=== PATIENT | female | born 1950 | race Hispanic/Latino ===

== ENCOUNTER 2017-03-05 16:20 | Observation (INO) | payer BC ==
--- NOTE | 2017-03-05 16:57 | ED PDOC ---
Arrival/HPI - General Time Seen by Provider: 03/05/17 16:42 Historian: Patient - History of Present Illness Narrative History of Present Illness (Text): 03/05/17 16:44 66 y/o female, pmh including htn/hyperlipidemia/a.fibb, allergic to sudafed/ sulfa medication, biba c/o chest pain on and off this week. Pt. was the [facility] this afternoon, noted to have elevated blood pressure 170s/100s, 200s/100s on the ambulance as per patient, noted to have higher BP 180s/110s, has chest pain when she gets agitated but relief when staying calm, no night sweat, no palpitation, no headache, no numbness or tingling, no other medical or psychological complaints. Past Medical History - Provider Review Nursing Documentation Reviewed: Yes - Infectious Disease Hx of Infectious Diseases: None - Tetanus Immunization Tetanus Immunization: Unknown - Cardiac Hx Cardiac Disorders: Yes Hx Angina: No Hx Cardiac Arrhythmia: Yes (A Fib) Hx Circulatory Problems: No Hx Congestive Heart Failure: No Hx Heart Murmur: No Hx Heart Transplant: No Hx Hypertension: Yes Hx Internal Defibrillator: No Hx Mitral Valve Prolapse: No Hx Pacemaker: No Hx Peripheral Edema: No Hx Peripheral Vascular Disease: No - Pulmonary Hx Respiratory Disorders: No Hx Asthma: No Hx Bronchitis: No Hx Chronic Obstructive Pulmonary Disease (COPD): No Hx Emphysema: No Hx Pneumonia: No Hx Respiratory Aspiration: No Hx Respiratory Tract Infection: No Hx Sleep Apnea: No Hx Tuberculosis: No - Neurological Hx Neurological Disorder: Yes Hx Alzheimer's Disease: No HX Cerebrovascular Accident: No Hx Dementia: No Hx Dizziness: Yes (Vertigo and headaches) Hx Meningitis: No Hx Migraine: No Hx Parkinson's Disease: No Hx Seizures: No Hx Transient Ischemic Attacks (TIA): No - HEENT Hx HEENT Disorder: Yes Hx Blind: No Hx Cataracts: Yes Hx Deafness: No Hx Difficulty Chewing: No Hx Epistaxis: No Hx Glaucoma: No Hx Macular Degeneration: No - Renal Hx Renal Disorder: No Hx Dialysis: No Hx Kidney Stones: No Hx Neurogenic Bladder: No Hx Pyelonephritis: No Hx Renal Cancer: No Hx Renal Failure: No - Endocrine/Metabolic Hx Endocrine Disorders: No Hx Adrenal Cancer: No Hx Diabetes Insipidus: No Hx Diabetes Mellitus Type 1: No Hx Diabetes Mellitus Type 2: No Hx Hyperthyroidism: No Hx Hypothyroidism: No Hx Systemic Lupus Erythematosus: No - Hematological/Oncological Hx Blood Disorders: No Hx AIDS: No Hx Anemia: No Hx Cancer: No Hx Chemotherapy: No Hx Cirrhosis: No Hx Hemophilia: No Hx Hepatitis A: No Hx Hepatitis B: No Hx Hepatitis C: No Hx Metastasis: No Hx Shingles: No Hx Sickle Cell Disease: No Hx Unexplained Bleeding: No - Integumentary Hx Dermatological Disorder: No Hx Basal Cell Carcinoma: No Hx Eczema: No Hx Melanoma: No Hx Psoriasis: No Hx Squamous Cell Carcinoma: No - Musculoskeletal/Rheumatological Hx Musculoskeletal Disorders: Yes Hx Arthritis: No Hx Back Pain: No Hx Degenerative Joint Disease: No Hx Falls: Yes Hx Fractures: No Hx Gout: No Hx Herniated Disk: No Hx Myasthenia Gravis: No Hx Osteoarthritis: No Hx Osteomyelitis: No Hx Osteoporosis: Yes Hx Rhabdomyolysis: No Hx Spinal Stenosis: No Hx Unsteady Gait: No - Gastrointestinal Hx Gastrointestinal Disorders: Yes (colitis) Hx Colostomy: No Hx Crohn's Disease: No Hx Diverticulitis: No Hx Gall Bladder Disease: No Hx Gastroesophageal Reflux: Yes Hx Gastrointestinal Ulcer: No Hx Ileostomy: No Hx Liver Failure: No Hx Pancreatitis: No HX Swallowing Problems: No - Genitourinary/Gynecological Hx Genitourinary Disorders: No Hx Hematuria: No Hx Incontinence: No Hx Prostate Problems: No Hx Sexually Transmitted Diseases: No Hx Urinary Tract Infection: No - Psychiatric Hx Psychophysiologic Disorder: Yes Hx Anxiety: Yes Hx Bipolar Disorder: No Hx Depression: No Hx Emotional Abuse: No Hx Hallucinations: No Hx Panic Disorder: No Hx Paranoia: No Hx Post Traumatic Stress Disorder: No Hx Psychosis: No Hx Physical Abuse: No Hx Schizophrenia: No Hx Sexual Abuse: No Hx Substance Use: No - Surgical History Hx Amputation: No Hx Appendectomy: Yes Hx Cardiac Catheterization: No Hx Cholecystectomy: No Hx Coronary Stent: No Hx Gastric Bypass Surgery: No Hx Hysterectomy: No Hx Inguinal Hernia Repair: No Hx Joint Replacement: No Hx Kidney Transplant: No Hx Liver Transplant: No Hx Mastectomy: No Hx Musculoskeletal Surgery: No Hx Open Heart Surgery: No Hx Orthopedic Surgery: No Hx Splenectomy: No Hx Valve Replacement: No - Anesthesia Hx Anesthesia: Yes Hx Anesthesia Reactions: No Hx Malignant Hyperthermia: No - Suicidal Assessment Feels Threatened In Home Enviroment: No Family/Social History - Physician Review Nursing Documentation Reviewed: Yes Family/Social History: Unknown Family HX Smoking Status: Former Smoker Hx Alcohol Use: No Hx Substance Use: No Hx Substance Use Treatment: No Allergies/Home Meds Allergies/Adverse Reactions: Allergies pseudoephedrine Allergy (Severe, Verified 11/11/15 18:08) RASH shellfish derived Allergy (Severe, Verified 11/11/15 18:08) Hives Sulfa (Sulfonamide Antibiotics) Allergy (Unknown, Verified 11/11/15 18:08) unknown Home Medications: Home Meds Medication Instructions Recorded Confirmed Simvastatin [Zocor] 20 mg PO DAILY 07/10/12 11/12/15 ALPRAZolam [Xanax] 0.25 mg PO BID PRN 11/20/14 11/12/15 Rabeprazole Sodium 20 mg PO DAILY 11/20/14 11/12/15 Amiodarone [Cordarone] 100 mg PO DAILY 11/21/14 11/12/15 Review of Systems - Review of Systems Constitutional: absent: Fatigue, Fevers Eyes: absent: Vision Changes ENT: absent: Hearing Changes Respiratory: absent: SOB, Cough Cardiovascular: Chest Pain Gastrointestinal: absent: Abdominal Pain, Nausea, Vomiting Physical Exam Vital Signs Reviewed: Yes Vital Signs Temp Pulse Resp BP Pulse Ox 03/05/17 19:59 65 14 168/100 H 96 03/05/17 18:54 56 L 17 139/90 96 03/05/17 17:48 62 184/96 H 03/05/17 16:35 98.3 F 71 18 186/113 H 97 Temperature: Afebrile Blood Pressure: Hypertensive Pulse: Regular Respiratory Rate: Normal Appearance: Positive for: Well-Appearing, Non-Toxic, Comfortable Pain Distress: None Mental Status: Positive for: Alert and Oriented X 3 - Systems Exam Head: Present: Atraumatic, Normocephalic Pupils: Present: PERRL Extroacular Muscles: Present: EOMI Conjunctiva: Present: Normal Mouth: Present: Moist Mucous Membranes Neck: Present: Normal Range of Motion Respiratory/Chest: Present: Clear to Auscultation, Good Air Exchange. No: Respiratory Distress, Accessory Muscle Use Cardiovascular: Present: Regular Rate and Rhythm, Normal S1, S2, Other (no pedal edema). No: Murmurs Abdomen: Present: Normal Bowel Sounds. No: Tenderness, Distention, Peritoneal Signs, Rebound, Guarding Back: Present: Normal Inspection Upper Extremity: Present: Normal Inspection. No: Cyanosis, Edema Lower Extremity: Present: Normal Inspection. No: Edema Neurological: Present: GCS=15, CN II-XII Intact, Speech Normal Skin: Present: Warm, Dry, Normal Color. No: Rashes Psychiatric: Present: Alert, Oriented x 3, Normal Insight, Normal Concentration Medical Decision Making ED Course and Treatment: 03/05/17 17:02 -labs/ua/troponin -ekg -chest x-ray -clonidine 0.1mg/aspirin po -playground monitor -observe and reassess 03/05/17 19:04 -Chest xray show no active disease -EKG: NSR @ 71 BPM, no ST elevation or depression, T wave inversion noted on the lead III. -Labs are non-significant -1st set of troponin is negative, pt. feels well now. -pt. will need to be admitted for observation for 24 hours for repeat cardiac enzymes. -Pt. agreed to be admitted -Dr. Delaney covers for the Dr. Alexis. 03/05/17 19:08 -I spoke to Dr. Delaney about the case/labs/radiology results/ekg, he request Dr. Ramon for routine consult and agreed on the observation plan. -I spoke to DR. Cervantes, he agreed on the treatment and observation plan, he will put in the admission order. - Lab Interpretations Lab Results: 03/05/17 17:30 03/05/17 17:30 Lab Results 03/05/17 17:30: Sodium 139, Potassium 4.3, Chloride 102, Carbon Dioxide 29, Anion Gap 12, BUN 12, Creatinine 0.7, Est GFR ( Amer) > 60, Est GFR (Non- Af Amer) > 60, Random Glucose 87, Calcium 9.5, Total Bilirubin 0.6, AST 36, ALT 29, Alkaline Phosphatase 78, Lactate Dehydrogenase 794 H, Total Creatine Kinase 235 H, CK-MB (CK-2) 2.7, CK-MB (CK-2) % Cancelled, Troponin I < 0.01, Total Protein 7.9, Albumin 4.5, Globulin 3.3, Albumin/Globulin Ratio 1.4 03/05/17 17:30: WBC 6.9, RBC 4.70, Hgb 13.4, Hct 39.7, MCV 84.5, MCH 28.5, MCHC 33.8, RDW 13.6, Plt Count 288, MPV 9.6, Gran % 60.4, Lymph % (Auto) 22.0, [facility] % (Auto) 7.0 H, Eos % (Auto) 9.9 H, Baso % (Auto) 0.7, Gran # 4.17, Lymph # 1.5 , [facility] # 0.5, Eos # 0.7, Baso # 0.05 I have reviewed the lab results: Yes Interpretation: No clinic. lab abnormalty - RAD Interpretation Radiology Orders: 03/05/17 17:00 CHEST PORTABLE [RAD] Stat no active disease [employer] Farmworker: Radiologist - EKG Interpretation EKG Interpretation (Text): 03/05/17 17:04 -EKG: NSR @ 71 BPM, no ST elevation or depression, T wave inversion noted on the lead III. Interpreted by ED Physician: Yes Type: 12 lead EKG Comparison: Com.w/previous EKG - Medication Orders Current Medication Orders: Discontinued Medications Aspirin (Aspirin) 325 mg PO STAT STA Stop: 03/05/17 17:01 Last Admin: 03/05/17 17:49 Dose: 325 mg Clonidine HCl (Catapres) 0.1 mg PO STAT STA Stop: 03/05/17 17:02 Last Admin: 03/05/17 17:48 Dose: 0.1 mg Nitroglycerin (Nitrostat Sl Tab) 0.3 mg SL STAT STA Stop: 03/05/17 17:01 - PA / CLERK CHECKER / Resident Statement MD/DO has reviewed & agrees with the documentation as recorded. Disposition/Present on Arrival - Present on Arrival Any Indicators Present on Arrival: No History of DVT/PE: No History of Uncontrolled Diabetes: No Urinary Catheter: No History of Decub. Ulcer: No History Surgical Site Infection Following: None - Disposition Have Diagnosis and Disposition been Completed?: Yes Diagnosis: Chest pain, Hypertension Disposition: HOSPITALIZED Disposition Time: 19:06 Patient Plan: Admission, Observation Patient Problems: Current Active Problems Problem Status Onset Chest pain Acute Hypertension Chronic Condition: STABLE
--- NOTE | 2017-03-05 17:59 | RAD ---
HISTORY: Medical clearance. Portable study 17:24. COMPARISON: No prior. FINDINGS: LUNGS: No active pulmonary disease. PLEURA: No significant pleural effusion identified, no pneumothorax apparent. CARDIOVASCULAR: No radiographic findings to suggest acute or significant cardiovascular disease. OSSEOUS STRUCTURES: No significant abnormalities. VISUALIZED UPPER ABDOMEN: Normal. OTHER FINDINGS: None. IMPRESSION: No active disease.
[2017-03-05 18:10] LABS: ADD MANUAL DIFF? NO
[2017-03-05 18:20] LABS: BASO # 0.05 K/mm3 (0.0-2.0); BASO % 0.7 % (0.0-3.0); EOS # 0.7 (0.0-0.7); EOS % 9.9 % (1.5-5.0); GRAN # 4.17 (1.4-6.5); GRAN % 60.4 % (50.0-68.0); HEMATOCRIT 39.7 % (36.0-48.0); LYMPH # 1.5 (1.2-3.4); MEAN CELL VOLUME 84.5 fL (80.0-105.0); MEAN CORPUSCULAR HEMOGLOBIN 28.5 pg (25.0-35.0); MEAN CORPUSCULAR HGB CONC 33.8 g/dl (31.0-37.0); MEAN PLATELET VOLUME 9.6 fl (7.0-11.0); MONO # 0.5 (0.1-0.6); PLATELET COUNT 288 10^3/uL (120.0-450.0); RED CELL DISTRIBUTION WIDTH 13.6 % (11.5-14.5); WHITE BLOOD COUNT 6.9 10^3/ul (4.5-11.0)
[2017-03-05 18:28] LABS: ALB/GLOB RATIO 1.4 (1.1-1.8); ALKALINE PHOSPHATASE 78 U/L (38-133); ALT/SGPT 29 U/L (7-56); AST/SGOT 36 U/L (15-39); BILIRUBIN,TOTAL 0.6 mg/dL (0.2-1.3); BLOOD UREA NITROGEN 12 mg/dL (7-21); CALCIUM 9.5 mg/dL (8.4-10.5); CARBON DIOXIDE 29 mmol/L (21-33); CHLORIDE 102 mmol/L (98-107); GFR AFRICAN-AMERICAN > 60; GLUCOSE,RANDOM 87 mg/dL (70-110); POTASSIUM 4.3 mmol/L (3.6-5.0); SODIUM 139 mmol/L (132-148); TOTAL PROTEIN 7.9 g/dL (5.8-8.3)
[2017-03-05 18:44] LABS: TROPONIN I < 0.01 ng/mL
[2017-03-05 21:10] LABS: PH,URINE 7.5 (4.7-8.0); URINE BILIRUBIN NEGATIVE (NEGATIVE); URINE BLOOD SMALL (NEGATIVE); URINE GLUCOSE (UA) NEGATIVE (NEGATIVE); URINE KETONE NEGATIVE (NEGATIVE); URINE LEUKOCYTE ESTERASE NEGATIVE Leu/uL (NEGATIVE); URINE PROTEIN NEGATIVE mg/dL (<30 mg/dL); URINE UROBILINOGEN 0.2 E.U./dL (<1 E.U./dL)
[2017-03-05 21:14] LABS: URINE APPEARANCE CLEAR (CLEAR); URINE COLOR LIGHT YELLOW (YELLOW)
[2017-03-05 21:26] LABS: URINE RBC 0 - 2 /hpf (0-2); URINE WBC NEGATIVE /hpf (0-6)
[2017-03-05 21:27] LABS: URINE BACTERIA NEG (NEG); URINE EPITHELIAL CELLS 0 - 2 /hpf (0-5)
[2017-03-05 23:10] VITALS: BMI 23.8
[2017-03-06] MEDS: Metoprolol Succinate 25 mg XL Tab PO SCH ×2 (11:55→19:40)
--- NOTE | 2017-03-06 13:10 | HP ---
DATE OF EVALUATION: 03/06/2017. HISTORY OF PRESENT ILLNESS: The patient is a 66-year-old female who presented to the ED with chest p ain, left-sided. She was not feeling well. Her blood pressures were uncontrolled in the ER with 200 systolic. She has a history of atrial fibrillation on Eliquis. Heart rate was controlled on curren t medication. She takes metoprolol 25 mg twice a day. No chest pain now. She was given aspirin. B lood pressure is still elevated at 120/110. She also has history of osteoarthritis. No joint pain n ow. Blood pressure had been controlled in the past. PAST MEDICAL HISTORY: Atrial fibrillation, hypertension, osteoarthritis, history of dizziness, verti go. PAST SURGICAL HISTORY: None. PERSONAL HISTORY: Former smoker. No history of alcohol abuse. FAMILY HISTORY: Noncontributory. No positive history in mother or father. SOCIAL HISTORY: Lives at home. ALLERGIES: PSEUDOEPHEDRINE, SHELLFISH, SULFA ALLERGIES. HOME MEDICATIONS: Xanax 0.25 mg p.o. b.i.d. p.r.n., Zocor 20 mg daily, amiodarone 100 mg p.o. b.i.d. , metoprolol 25 mg p.o. b.i.d. REVIEW OF SYSTEMS: As per HPI. Rest of 12-point review of systems reviewed and negative. PHYSICAL EXAMINATION: GENERAL: Comfortable in bed, in no acute distress. VITAL SIGNS: Blood pressure 180/110, heart rate is 70 per minute, temperature 98.7, pulse ox is 98% room air. HEENT: Normal. NECK: No lymphadenopathy. CHEST: Air entry present, equal bilateral. No added sound. CARDIOVASCULAR: Within normal limits. S1, S2 is irregularly irregular consistent with history of at rial fibrillation. ABDOMEN: Soft, nontender, no hepatosplenomegaly. EXTREMITIES: No edema. CENTRAL NERVOUS SYSTEM: Alert, oriented x 3. No sensory motor deficit. SPINE: Nontender. LYMPHADENOPATHY: None. LABORATORY DATA: White count 6.9, hemoglobin 13.4, hematocrit 39.7, platelet 288, monocyte elevated at 7%, eosinophil elevated at 9.9%. Creatinine kinase 235. Troponin negative less than 0.01. Sodiu m 139, potassium 4.3, glucose 102, BUN 12, creatinine 0.7, glucose 87. Chest x-ray: No infiltrate. EK per minute heart rate, no ST-T changes, T inversion in lead 3. ASSESSMENT: 1. Left-sided chest pain. 2. Uncontrolled hypertension. 3. Atrial fibrillation. 4. Anticoagulation with Eliquis. 5. Osteoarthritis. 6. Monocytosis, eosinophilia on CBC. PLAN: She will be admitted to be admitted to tele. We will do the tele monitoring. Blood pressure is still uncontrolled. We will start beta keerthi. She has been taking at home metoprolol 25 mg p.o . b.i.d. She is also on lisinopril 10 mg daily, continue that. Aspirin 325 mg daily. She is also o n Eliquis 5 mg p.o. b.i.d., continue that. Continue Norvasc 5 mg daily, amiodarone 100 mg daily, Emil ax 0.25 mg p.o. b.i.d. for p.r.n. She was evaluated by Dr. Ramon, cardiology, she was requesting ca rdiology consultation Dr. Romero. We will consult Dr. Romero, I am not sure if he comes to [facility]. Consult requested as per patient request. We will continue to monitor cardiac enzymes, i f stable will do discharge planning maybe by tomorrow. Nicole Ze MD cc: [id number] TT: 03/06/2017 13:09:16 rosey
--- NOTE | 2017-03-06 14:12 | CARD ---
APPROVED REPORT EKG Measurement Heart [id number] <Conclusion> Normal sinus rhythm Moderate voltage criteria for LVH, may be normal variant Borderline ECG
[2017-03-07 00:58] VITALS: O2SAT 96
[2017-03-07 07:04] VITALS: BP 127/74; RESP 18; TEMP 98.3
--- NOTE | 2017-03-07 10:21 | CP.PCM.CON ---
History of Present Illness - History of Present Illness History of Present Illness: CC: Fatigue and HTN HPI: 66 year old female with following chronic medical problems 1. HTN - now controlled 2. Paroxysmal afib now in NSR 3. Diastolic CHF - chronic and stable 4. Generalized anxiety She was sitting her podiatrists office and was found to have accelerated HTN which was occurring in the context of vertigo and generalized fatigue. She is reporting associated palpitations. New she is denying all symptoms. Review of Systems - Review of Systems All systems: reviewed and no additional remarkable complaints except Review of Systems: Anxiety Past Patient History - Infectious Disease Hx of Infectious Diseases: None - Tetanus Immunizations Tetanus Immunization: Unknown - Past Social History Smoking Status: Former Smoker - CARDIAC Hx Cardiac Disorders: Yes Hx Angina: No Hx Cardia Arrhythmia: Yes (A Fib) Hx Circulatory Problems: No Hx Congestive Heart Failure: No Hx Heart Murmur: No Hx Heart Transplant: No Hx Hypertension: Yes Hx Internal Defibrillator: No Hx Mitral Valve Prolapse: No Hx Pacemaker: No Hx Peripheral Edema: No Hx Peripheral Vascular Disease: No - PULMONARY Hx Respiratory Disorders: No Hx Asthma: No Hx Bronchitis: No Hx Chronic Obstructive Pulmonary Disease (COPD): No Hx Emphysema: No Hx Pneumonia: No Hx Respiratory Aspiration: No Hx Respiratory Tract Infection: No Hx Sleep Apnea: No Hx Tuberculosis: No - NEUROLOGICAL Hx Neurological Disorder: Yes Hx Alzheimer's Disease: No HX Cerebrovascular Accident: No Hx Dementia: No Hx Dizziness: Yes (Vertigo and headaches) Hx Meningitis: No Hx Migraine: No Hx Parkinson's Disease: No Hx Seizures: No Hx Transient Ischemic Attacks (TIA): No - HEENT Hx HEENT Problems: Yes Hx Blind: No Hx Cataracts: Yes Hx Deafness: No Hx Difficulty Chewing: No Hx Epistaxis: No Hx Glaucoma: No Hx Macular Degeneration: No - RENAL Hx Chronic Kidney Disease: No Hx Dialysis: No Hx Kidney Stones: No Hx Neurogenic Bladder: No Hx Pyelonephritis: No Hx Renal (Kidney) Cancer: No Hx Renal Failure: No - ENDOCRINE/METABOLIC Hx Endocrine Disorders: No Hx Adrenal Cancer: No Hx Diabetes Insipidus: No Hx Diabetes Mellitus Type 1: No Hx Diabetes Mellitus Type 2: No Hx Hyperthyroidism: No Hx Hypothyroidism: No Hx Systemic Lupus Erythematosus: No - HEMATOLOGICAL/ONCOLOGICAL Hx Blood Disorders: No Hx AIDS: No Hx Anemia: No Hx Cancer: No Hx Chemotherapy: No Hx Cirrhosis: No Hx Hemophilia: No Hx Hepatitis A: No Hx Hepatitis B: No Hx Hepatitis C: No Hx Metastesis: No Hx Shingles: No Hx Sickle Cell Disease: No Hx Unexplained Bleeding: No - INTEGUMENTARY Hx Dermatological Problems: No Hx Basil Cell: No Hx Eczema: No Hx Melanoma: No Hx Psoriasis: No Hx Squamous Cell: No - MUSCULOSKELETAL/RHEUMATOLOGICAL Hx Musculoskeletal Disorders: Yes Hx Arthritis: No Hx Back Pain: No Hx Degenerative Joint Disease: No Hx Falls: Yes Hx Fractures: No Hx Gout: No Hx Herniated Disk: No Hx Myasthenia Gravis: No Hx Osteoarthritis: No Hx Osteomyelitis: No Hx Osteoporosis: Yes Hx Rhabdomyolysis: No Hx Spinal Stenosis: No Hx Unsteady Gait: No - GASTROINTESTINAL Hx Gastrointestinal Disorders: Yes (colitis) Hx Colostomy: No Hx Crohn's Disease: No Hx Diverticulitis: No Hx Gall Bladder Disease: No Hx Gastroesophageal Reflux: Yes Hx Ileostomy: No Hx Liver Failure: No Hx Pancreatitis: No HX Swallowing Problems: No - GENITOURINARY/GYNECOLOGICAL Hx Genitourinary Disorders: No Hx Hematuria: No Hx Incontinence: No Hx Sexually Transmitted Disorders: No Hx Urinary Tract Infection: No - PSYCHIATRIC Hx Psychophysiologic Disorder: Yes Hx Anxiety: Yes Hx Bipolar Disorder: No Hx Depression: No Hx Emotional Abuse: No Hx Hallucinations: No Hx Panic Symptoms: No Hx Paranoia: No Hx Post Traumatic Stress Disorder: No Hx Psychosis: No Hx Physical Abuse: No Hx Schizophrenia: No Hx Sexual Abuse: No Hx Substance Use: No - SURGICAL HISTORY Hx Amputation: No Hx Appendectomy: Yes Hx Cardiac Catheterization: No Hx Cholecystectomy: No Hx Coronary Stent: No Hx Gastric Bypass Surgery: No Hx Hysterectomy: No Hx Joint Replacement: No Hx Kidney Transplant: No Hx Liver Transplant: No Hx Mastectomy: No Hx Musculoskeletal Surgery: No Hx Open Heart Surgery: No Hx Orthopedic Surgery: No Hx Splenectomy: No Hx Valve Replacement: No - ANESTHESIA Hx Anesthesia: Yes Hx Anesthesia Reactions: No Hx Malignant Hyperthermia: No Meds Allergies/Adverse Reactions: Allergies Allergy/AdvReac Type Severity Reaction Status Date / Time pseudoephedrine Allergy Severe RASH Verified 11/11/15 18:08 shellfish derived Allergy Severe Hives Verified 11/11/15 18:08 Sulfa (Sulfonamide Allergy Unknown unknown Verified 11/11/15 18:08 Antibiotics) - Medications Medications: Current Medications Alprazolam (Xanax) 0.25 mg PO BID PRN; Protocol PRN Reason: Anxiety Stop: 03/12/17 21:36 Last Admin: 03/07/17 03:14 Dose: 0.25 mg Amlodipine Besylate (Norvasc) 5 mg PO DAILY [facility] Last Admin: 03/06/17 09:14 Dose: 5 mg Apixaban (Eliquis) 5 mg PO BID [facility] PRN Reason: Protocol Last Admin: 03/06/17 19:40 Dose: 5 mg Aspirin (Aspirin) 325 mg PO DAILY [facility] Last Admin: 03/06/17 09:14 Dose: 325 mg Atorvastatin Calcium (Lipitor) 10 mg PO DIN [facility] Last Admin: 03/06/17 19:40 Dose: 10 mg Lisinopril (Zestril) 10 mg PO DAILY [facility] Last Admin: 03/06/17 09:14 Dose: 10 mg Metoprolol Succinate (Toprol Xl) 25 mg PO BID [facility] Last Admin: 03/06/17 19:40 Dose: 25 mg Physical Exam - Constitutional Appears: Well, Non-toxic - Head Exam Head Exam: ATRAUMATIC, NORMAL INSPECTION - Eye Exam Eye Exam: PERRL. absent: Scleral icterus - ENT Exam ENT Exam: Mucous Membranes Moist, Normal External Ear Exam - Neck Exam Neck exam: Negative for: Lymphadenopathy, Thyromegaly - Respiratory Exam Respiratory Exam: Clear to Auscultation Bilateral, NORMAL BREATHING PATTERN - Cardiovascular Exam Cardiovascular Exam: REGULAR RHYTHM, RRR, +S1, +S2, +S4, Systolic Murmur. absent: JVD - GI/Abdominal Exam GI & Abdominal Exam: Normal Bowel Sounds. absent: Organomegaly - Neurological Exam Neurological exam: CN II-XII Intact, Oriented x3 - Psychiatric Exam Psychiatric exam: Depressed, Normal Affect, Normal Mood Results - Vital Signs Recent Vital Signs: Last Vital Signs Temp 98.3 F 03/07/17 06:00 Pulse 63 03/07/17 06:00 Resp 18 03/07/17 06:00 BP 127/74 03/07/17 06:00 Pulse Ox 96 03/07/17 06:00 - Labs Result Diagrams: 03/05/17 17:30 03/05/17 17:30 - EKG Data EKG Interpreted by: Myself EKG shows normal: Sinus rhythm - Imaging and Cardiology Chest x-ray Status: Image reviewed by me Additional comment: No infiltrates or effusions Assessment & Plan - Assessment and Plan (Free Text) Assessment: 66 year old female with accelerated HTN now controlled on Norvasc, JANIYA and Toprol XL Paroxysmal atrial fibrillation with rhythm controlled on beta blockers, Continue NOAC for CVA prophylaxsis Anxeity/Depression - she is only using benzo, she will follow up with her PMD Dr. Alexis to further evaluate this difficult chronic condition Dyslipidemia - High dose statin to reduce her risk of future CV events. She can follow up in my office in 1 week to reassess her blood pressure and symptoms
[2017-03-07] MEDS: Metoprolol Succinate 25 mg XL Tab PO SCH (11:15)
[2017-03-07 14:07] VITALS: PULSE 70
--- NOTE | 2017-03-16 02:05 | DS ---
DISCHARGE DIAGNOSES: 1. Chest pain. 2. Uncontrolled hypertension. 3. Atrial fibrillation on anticoagulation. 4. Monocytosis, eosinophilia. HOSPITAL COURSE: The patient was admitted with chest pain and palpitations. She had uncontrolled hypertension with blood pressure elevated to 120/110. She was admitted on telemonitoring. Serial cardiac enzymes were done, were negative for acute coronary syndrome. She was evaluated by sonography technician, Dr. Ramon and Dr. Romero. She is being discharged in stable condition. PHYSICAL EXAMINATION: GENERAL: On discharge, comfortable in bed, in no acute distress. VITAL SIGNS: Heart rate is 68 per minute, blood pressure 140/90, temperature 98.7, pulse ox is 98% room air. HEENT: Normal. NECK: No lymphadenopathy. CHEST: Air entry present, equal bilateral. No added sound. CARDIOVASCULAR: S1, S2 normal. No murmur, no gallop. ABDOMEN: Soft, nontender. No hepatosplenomegaly. EXTREMITIES: No edema. NEUROLOGIC: Alert, oriented x 3. No sensory or motor deficit. SKIN: No petechia, no rash. LABORATORY DATA: On discharge, white count is 6.9, hemoglobin 13.7, hematocrit 39.7, platelet 288. Chemistries: BUN 12, creatinine 0.7. CONDITION ON DISCHARGE: Stable. HOME MEDICATIONS: Xanax 0.25 mg p.o. b.i.d. p.r.n., Norvasc 5 mg daily, Eliquis 5 mg p.o. b.i.d., aspirin 325 mg daily, Lipitor 10 mg daily, Catapres 0.1 mg p.o , lisinopril 10 mg daily. DISCHARGE INSTRUCTIONS: Follow up with Dr. Romero in 1 week. All prescriptions given to the patient. Discussed with the staff nurse. Discussed with the patient. Followup appointment in agreement. Time spent in preparing discharge and coordinating care, 50 minutes. Nicole Kunz MD cc: [id number] TT: 03/16/2017 02:04:53 kerry CHIRINOS
== END 2017-03-07 14:51 | disposition home or self-care (01) ==
LOC: ED 16:20 → ERH 19:08 → 2RNO 21:48
PROVIDERS: ADMIT Internal Medicine Nephrology; ATTEND Internal Medicine Nephrology
DX: I11.0 Hypertensive heart disease with heart failure (principal); I50.32 Chronic diastolic (congestive) heart failure; R07.9 Chest pain, unspecified; I48.0 Paroxysmal atrial fibrillation; F41.1 Generalized anxiety disorder; F32.9 Major depressive disorder, single episode, unspecified; E78.5 Hyperlipidemia, unspecified; M19.90 Unspecified osteoarthritis, unspecified site; Z88.2 Allergy status to sulfonamides; Z87.891 Personal history of nicotine dependence; D72.1 Eosinophilia; Z79.01 Long term (current) use of anticoagulants
CPT/HCPCS: 36415; 71010; 80053; 81001; 82550; 82553; 83615; 84484; 85025; 93005; 99285; G0378

== ENCOUNTER 2017-03-25 18:01 | Emergency (ER) | payer BC ==
[2017-03-25 18:01] VITALS: BMI 23.8
[2017-03-25 18:10] VITALS: BP 144/89; PULSE 64; RESP 16; TEMP 98.8; O2SAT 96
[2017-03-25] MEDS ORDERED: Atrop/Hyosc/Scopal/PB Elixir (120 ml) PO STA (18:44)
[2017-03-25] MEDS ORDERED: Alum-Mag Hydrox-Simethicone Susp (30 mL) PO STA (18:44)
--- NOTE | 2017-03-25 18:44 | ED PDOC ---
Arrival/HPI - General Chief Complaint: Abdominal Pain Time Seen by Provider: 03/25/17 18:18 Historian: Patient - History of Present Illness Narrative History of Present Illness (Text): 03/25/17 18:43 This 66 yo female with pmh gastritic, presents to this ED c/o epigastric pain x 2 day. Patient stated she thinks pain is from gastritis, and she is requesting a stronger medication than Lanzoprasol for her stomach. Patient stated she had blood test this morning, and it was normal. Patient noted one episode of trace of blood after she wipe herself after BM. Patient is Taking Eliquis. Patient is refusing to have blood test, imaging, GUAIAC, IV access, or admission. Time/Duration: Other (see HPI) Context: Home Past Medical History - Provider Review Nursing Documentation Reviewed: Yes - Infectious Disease Hx of Infectious Diseases: None - Tetanus Immunization Tetanus Immunization: Unknown - Cardiac Hx Cardiac Disorders: Yes Hx Angina: No Hx Cardiac Arrhythmia: Yes (A Fib) Hx Circulatory Problems: No Hx Congestive Heart Failure: No Hx Heart Murmur: No Hx Heart Transplant: No Hx Hypertension: Yes Hx Internal Defibrillator: No Hx Mitral Valve Prolapse: No Hx Pacemaker: No Hx Peripheral Edema: No Hx Peripheral Vascular Disease: No - Pulmonary Hx Respiratory Disorders: No Hx Asthma: No Hx Bronchitis: No Hx Chronic Obstructive Pulmonary Disease (COPD): No Hx Emphysema: No Hx Pneumonia: No Hx Respiratory Aspiration: No Hx Respiratory Tract Infection: No Hx Sleep Apnea: No Hx Tuberculosis: No - Neurological Hx Neurological Disorder: Yes Hx Alzheimer's Disease: No HX Cerebrovascular Accident: No Hx Dementia: No Hx Dizziness: Yes Hx Meningitis: No Hx Migraine: No Hx Parkinson's Disease: No Hx Seizures: No Hx Transient Ischemic Attacks (TIA): No - HEENT Hx HEENT Disorder: Yes Hx Blind: No Hx Cataracts: Yes Hx Deafness: No Hx Difficulty Chewing: No Hx Epistaxis: No Hx Glaucoma: No Hx Macular Degeneration: No - Renal Hx Renal Disorder: No Hx Dialysis: No Hx Kidney Stones: No Hx Neurogenic Bladder: No Hx Pyelonephritis: No Hx Renal Cancer: No Hx Renal Failure: No - Endocrine/Metabolic Hx Endocrine Disorders: No Hx Adrenal Cancer: No Hx Diabetes Insipidus: No Hx Diabetes Mellitus Type 1: No Hx Diabetes Mellitus Type 2: No Hx Hyperthyroidism: No Hx Hypothyroidism: No Hx Systemic Lupus Erythematosus: No - Hematological/Oncological Hx Blood Disorders: No - Integumentary Hx Dermatological Disorder: No - Musculoskeletal/Rheumatological Hx Musculoskeletal Disorders: Yes Hx Falls: Yes Hx Osteoporosis: Yes - Gastrointestinal Hx Gastrointestinal Disorders: Yes Hx Colitis: Yes Hx Crohn's Disease: Yes Hx Gastritis: Yes Hx Gastroesophageal Reflux: Yes Hx Ileostomy: No - Genitourinary/Gynecological Hx Genitourinary Disorders: No - Psychiatric Hx Psychophysiologic Disorder: Yes Hx Anxiety: Yes Hx Substance Use: No - Surgical History Hx Appendectomy: Yes - Anesthesia Hx Anesthesia: Yes Hx Anesthesia Reactions: No Hx Malignant Hyperthermia: No - Suicidal Assessment Feels Threatened In Home Enviroment: No Family/Social History - Physician Review Nursing Documentation Reviewed: Yes Family/Social History: No Known Family HX Smoking Status: Former Smoker Hx Alcohol Use: No Hx Substance Use: No Hx Substance Use Treatment: No Allergies/Home Meds Allergies/Adverse Reactions: Allergies pseudoephedrine Allergy (Severe, Verified 03/25/17 18:03) RASH shellfish derived Allergy (Severe, Verified 03/25/17 18:03) Hives Sulfa (Sulfonamide Antibiotics) Allergy (Unknown, Verified 03/25/17 18:03) unknown Home Medications: Home Meds Medication Instructions Recorded Confirmed ALPRAZolam [Xanax] 0.25 mg PO BID PRN 11/20/14 03/25/17 Rabeprazole Sodium 20 mg PO DAILY 11/20/14 03/25/17 Apixaban [Eliquis] 5 mg PO BID 03/05/17 03/25/17 Metoprolol Succinate [Toprol XL] 25 mg PO BID 03/05/17 03/25/17 Aspirin [Aspirin EC] 1 tab PO DAILY 03/25/17 03/25/17 Simvastatin [Zocor] 20 mg PO DAILY 03/25/17 03/25/17 Review of Systems - Review of Systems Constitutional: Normal. absent: Fatigue, Weight Change, Fevers Eyes: Normal ENT: Normal Respiratory: Normal. absent: SOB, Cough Cardiovascular: Normal. absent: Chest Pain, Palpitations Gastrointestinal: Abdominal Pain, Other (rectal bleeding). absent: Nausea, Vomiting Genitourinary Female: Normal. absent: Dysuria, Frequency, Hematuria Musculoskeletal: Normal Skin: Normal Neurological: Normal. absent: Headache, Dizziness Endocrine: Normal Hemo/Lymphatic: Normal Psychiatric: Normal Physical Exam Vital Signs Temp Pulse Resp BP Pulse Ox 03/25/17 18:05 98.8 F 64 16 144/89 96 Temperature: Afebrile Blood Pressure: Normal Pulse: Regular Respiratory Rate: Normal Appearance: Positive for: Well-Appearing, Non-Toxic, Comfortable Pain Distress: None Mental Status: Positive for: Alert and Oriented X 3 - Systems Exam Head: Present: Atraumatic, Normocephalic Pupils: Present: PERRL Extroacular Muscles: Present: EOMI Conjunctiva: Present: Normal Mouth: Present: Moist Mucous Membranes Neck: Present: Normal Range of Motion Respiratory/Chest: Present: Clear to Auscultation, Good Air Exchange. No: Respiratory Distress, Wheezes, Retracting, Rhonchi Cardiovascular: Present: Regular Rate and Rhythm, Normal S1, S2. No: Murmurs Abdomen: Present: Other (refused examination) Rectal: Present: Other (refused SUSIE) Upper Extremity: Present: Normal Inspection, Normal ROM, NORMAL PULSES, Neurovascularly Intact, Capillary Refill < 2s Lower Extremity: Present: Normal Inspection, NORMAL PULSES, Normal ROM, Capillary Refill < 2 s. No: Edema, CALF TENDERNESS Neurological: Present: GCS=15, CN II-XII Intact, Speech Normal, Motor Func Grossly Intact, Normal Sensory Function, Normal Cerebellar Funct, Gait Normal Skin: Present: Warm, Dry, Normal Color. No: Rashes Psychiatric: Present: Alert, Oriented x 3 Medical Decision Making ED Course and Treatment: 03/25/17 20:00 Patient refused GI cocktail. Refused labs, EKG, CXR, and admission. She wants to leave AMA. 03/25/17 20:02 Leaving Against Medical Advice (AMA): This patient is choosing to leave against medical advice. The EP has personally explained to the pt that choosing to do so may result in permanent bodily harm or . The EP discussed at great length that without further evaluation and monitoring there may be unforeseen circumstances and/or deterioration causing permanent bodily harm or as a result of their choice. The pt verbalized these risks back to the physician in laymans terms. The pt is alert, oriented, and shows the mental capacity to make clear decisions regarding the pts health care at this time. The pt continues to wish to leave against medical advice. In light of the pts decision to leave AMA, follow-up has been recommended and the pt is aware of the importance of following up as instructed. The pt has been advised that they should return to the ED immediately if they change their mind at any time, or if the condition begins to change or worsen in any way. Re-evaluation Time: 20:01 - Medication Orders Current Medication Orders: Discontinued Medications Al Hydrox/Mg Hydrox/Simethicone (Maalox Plus 30 Ml) 30 ml PO STAT STA Stop: 03/25/17 18:45 Last Admin: 03/25/17 19:26 Dose: 30 ml Belladonna/Phenobarbital ( Elixir) 10 ml PO STAT STA Stop: 03/25/17 18:45 Last Admin: 03/25/17 19:25 Dose: 10 ml Famotidine (Pepcid) 40 mg PO STAT STA Stop: 03/25/17 19:58 Last Admin: 03/25/17 20:10 Dose: 40 mg Lidocaine HCl (Lidocaine 2% Viscous) 5 ml PO STAT STA Stop: 03/25/17 18:45 Last Admin: 03/25/17 19:25 Dose: 5 ml Sucralfate (Carafate Tab) 1 gm PO STAT STA Stop: 03/25/17 19:58 Last Admin: 03/25/17 20:10 Dose: 1 gm Disposition/Present on Arrival - Present on Arrival Any Indicators Present on Arrival: No History of DVT/PE: No History of Uncontrolled Diabetes: No Urinary Catheter: No History of Decub. Ulcer: No History Surgical Site Infection Following: None - Disposition Have Diagnosis and Disposition been Completed?: Yes Diagnosis: Epigastric pain Disposition: AGAINST MEDICAL ADVICE Disposition Time: 20:03 Condition: UNKNOWN Referrals: Chrissie Alexis MD [Primary Care Provider] - Follow up with primary
== END 2017-03-25 20:00 | disposition left against medical advice (07) ==
LOC: ED 18:01
DX: R10.13 Epigastric pain (principal)